=== PATIENT | male | born 1960 | race Caucasian/White ===

== ENCOUNTER 2021-10-12 12:32 | Day surgery (SDC) | payer OTHER ==
[~2021-10-12] VITALS: Ht 177.8 cm; Wt 145.4 kg
[~2021-10-12 12:32] MED LIST: ASPIRIN EC325 MG PO; DAILY VITAMIN1 EAC2 PO; FISH OIL500 MG PO; FLAX OIL1000 MG PO; GLUCOSAMINE &1 EAC1 PO; SAW PALMETTO160 MG PO; VITAMIN B-121000 MCG PO
[2021-10-12] MEDS ORDERED: VENTOLIN HFA18 GM INH (12:52)
--- NOTE | 2021-10-12 15:10 | NUR ---
10/12/21 1510 Parul Valentino PT TO PACU ALERT AND AWAKE. DENIES PAIN AND NAUSEA,
--- NOTE | 2021-10-13 14:40 | OR ---
[facility] [address], [place] [address] Signed DATE OF OPERATION: 10/12/2021 SURGEON: Christine Galarza MD PREOPERATIVE DIAGNOSIS: Episodic rectal bleeding. POSTOPERATIVE DIAGNOSIS: Sigmoid diverticulosis, no evidence of polyps, colitis, or cancer. PROCEDURE: Total colonoscopy to cecum with biopsy of rectum. ANESTHESIA: Intravenous sedation fentanyl 100 mcg and Versed 7 mg. INDICATION: This obese 61-year-old white man has numerous medical problems and is a patient of [facility] Ke[facility]. He has undergone colonoscopy in the past, was noted to have polyps. He has no family history of colon cancer. The patient has had episodic recurrent acute rectal bleeding, which is painless. He is admitted at this time to undergo colonoscopy to better characterize the problem. He understands the risks of bleeding, infection, and perforation related to colonoscopy and wished to proceed. FINDINGS: The prep was quite good. Complete colonoscopy was undertaken to the cecum without question. He had diverticula of the sigmoid and left colon. He had no internal hemorrhoids and no evidence of fissure or obvious proctitis. Biopsies were obtained of the rectum to assess for occult colitis. There was no evidence of polyps or cancer. DESCRIPTION OF PROCEDURE: The patient was brought to the endoscopy suite and placed in lateral decubitus position, given intravenous sedation to the point of slurred speech and nystagmus. Full cardiopulmonary monitoring was maintained. Digital rectal examination was found to be normal. An Olympus video colonoscope was passed in the rectum and manipulated throughout the colon noting diverticula of the sigmoid and left colon. The scope was ultimately advanced to the cecum. The ileocecal valve and appendiceal orifice were normal. The Electronically Signed By: CHRISTINE GALARZA MD 10/13/21 1440 PATIENT NAME: MARYSE JURADO OPERATIVE REPORT DATE OF : 64 REPORT #: [id number] PHYSICIAN: CHRISTINE GALARZA MD PCP: TRAVIS LITTLE REPORT IS CONFIDENTIAL AND NOT TO BE RELEASED WITHOUT AUTHORIZATION [facility] [address], [place] [address] Signed scope was withdrawn from that point. Examination throughout showed no sign of abnormality other than diverticulosis. Retroflexed view of the rectum was normal as well, showing no sign of internal hemorrhoids that he may have. The scope was carefully manipulated allowing for biopsy of the rectum to assess for occult proctitis. The scope was removed and the external examination undertaken showing external hemorrhoidal changes. There was no sign of neoplasm. The patient was taken to the recovery room in good condition having suffered no complication. CONCLUSION DIAGNOSIS: Uncertain to cause of rectal bleeding. Diverticula are a possibility, but less likely. Shows no clinical evidence of proctitis. PLAN: We will recommend a high-fiber diet or Metamucil one scoop daily. If recurrent bleeding should happen, I am happy to see him again for further evaluation. MD JAX Garcia/MARKUS /[id number] cc: [facility]IOLET Keating Copies: ~ Electronically Signed By: CHRISTINE GALARZA MD 10/13/21 1440 PATIENT NAME: MARYSE JURADO OPERATIVE REPORT DATE OF : 64 REPORT #: [id number] PHYSICIAN: CHRISTINE GALARZA MD PCP: TRAVIS LITTLE REPORT IS CONFIDENTIAL AND NOT TO BE RELEASED WITHOUT AUTHORIZATION
--- NOTE | 2021-10-17 12:17 | PATH ---
[facility] [address] [facility] [place], [place] [address] Signed SPECIMEN(S): A RECTAL BIOPSY SPECIMEN SOURCE: A. RECTAL BIOPSY CLINICAL HISTORY: Rectal bleeding, history of colon polyps. Post-op: Diverticulosis. FINAL PATHOLOGIC DIAGNOSIS: Rectum, biopsy: - Benign colonic mucosa with prominent intramucosal lymphoid aggregates. - No evidence of neoplasia. COMMENT: Examination of sections from three different levels of the tissue block discloses the presence of benign intramucosal lymphoid aggregates. Intramucosal lymphoid aggregates can sometimes appear as polyps endoscopically. They have no clinical significance. There is no evidence of dysplasia or malignancy. TWK:kaylen:C2NR MICROSCOPIC EXAMINATION: Histologic sections of all submitted blocks are examined by light microscopy. These findings, together with the gross examination, support the pathologic diagnosis. GROSS DESCRIPTION: The specimen, labeled "TR," and designated on the requisition "rectum," is received in formalin and consists of two wayne soft tissue fragments that measure 0.3 cm in greatest dimension. The specimen is entirely submitted in cassette (A1). AT (under the direct supervision of a pathologist) The Gross Description was prepared using a voice recognition system. The report was reviewed for accuracy; however, sound-alike word errors, addition and/or deletions may occur. If there is any question about this report, please contact Client Services. PERFORMING LABORATORY: The technical component was performed by [facility], [address] [place] [id number] (CLIA# [id number]). The professional interpretation was performed by [facility] PATIENT NAME: MARYSE JURADO PATHOLOGY DATE OF : 64 REPORT #: [id number] PHYSICIAN: BORIS PATHOLOGY PCP: TRAVIS LITTLE REPORT IS CONFIDENTIAL AND NOT TO BE RELEASED WITHOUT AUTHORIZATION [facility] [address] [place], [place] [address] Signed [place] [address] [address] (CLIA#: [id number]). Diagnostician: Herbie Cobian MD Pathologist Electronically Signed 10/17/2021 Copies: ~ PATIENT NAME: MARYSE JURADO PATHOLOGY DATE OF : 64 REPORT #: [id number] PHYSICIAN: BORIS CAREY PCP: TRAVIS LITTLE REPORT IS CONFIDENTIAL AND NOT TO BE RELEASED WITHOUT AUTHORIZATION
== END 2021-10-12 15:29 | disposition home or self-care (01) ==
LOC: OPS 12:32 → DS 12:32 → OPS 14:00 → DS 14:00 → OPS 15:29
PROVIDERS: ATTEND Surgery
PROC: 0DBP8ZX Excision of Rectum, Via Natural or Artificial Opening Endoscopic, Diagnostic (ICD-10-PCS; principal; 2021-10-12 14:00)
DX: K62.89 Other specified diseases of anus and rectum (principal); K57.30 Diverticulosis of large intestine without perforation or abscess without bleeding; E66.01 Morbid (severe) obesity due to excess calories; Z68.42 Body mass index [BMI] 45.0-49.9, adult; Z98.84 Bariatric surgery status; Z86.010 Personal history of colon polyps; Z80.0 Family history of malignant neoplasm of digestive organs
CPT/HCPCS: 99153; G0500; J2250; J3010; J7121